=== PATIENT | female | born 1995 | race Caucasian/White ===

== ENCOUNTER 2018-09-24 06:32 | Inpatient (IN) | payer BC ==
[2018-09-09 11:48] VITALS: BMI 22.8
--- NOTE | 2018-09-18 10:35 | HP ---
Admitting History and Physical - Primary Care Physician PCP: Sebastien Chavarria - Admission Chief Complaint: High risk for breast cancer History of Present Illness: Patient is a 23 yo female who presents as a high risk for breast cancer patient secondary to personal h/o of BRCA 1 positive status (546GT) and strong family h/ o breast and ovarian cancer. Patient is presenting for bilateral prophylactic mastectomy with immediate reconstruction. Bilateral mammo, US and MRI done 2018 were wnl. History Source: Patient - Past Medical History Reproductive: Yes: Polycystic Ovary Syndrome, Other (genital herpes) ...LMP: 09/09/18 Psych: Yes: Anxiety, Depression - Advance Directives Advance Directives: Yes: Health Care Proxy - Smoking History Smoking history: Never smoked Have you smoked in the past 12 months: No - Alcohol/Substance Use Hx Alcohol Use: Yes (SOCIALLY) Home Medications - Allergies Allergies/Adverse Reactions: Allergies Allergy/AdvReac Type Severity Reaction Status Date / Time No Known Drug Allergies Allergy Verified 09/09/18 11:41 adhesive AdvReac Intermediate Itching,RED Verified 09/09/18 11:49 NESS - Home Medications Home Medications: Ambulatory Orders Escitalopram Oxalate [Lexapro -] 15 mg PO HS 09/09/18 Norethindrone-E.estradiol-Iron [Loestrin Fe 1.5-30 Tablet] 1 each PO HS Family Disease History - Family Disease History Family Disease History: CA: Grandparent (breast at 50 and 65, lung at 92, BRCA 1 +), Mother (breast cancer at 35 and 45, BRCA 1+) Other Family History: mat GF-prostate cancer at 78. mat great aunt-breast cancer at 90. mat great aunt -breast cancer 90s. mat great aunt-ovarian cancer. mat family member-melanoma Review of Systems - Review of Systems Constitutional: reports: No Symptoms Cardiovascular: reports: No Symptoms Respiratory: reports: No Symptoms Physical Examination Constitutional: Yes: Well Nourished, Calm Breast(s): Yes: Other (Slightly tubular breasts which are B-cup and symmetrical bilaterally. No suspicious masses noted bilaterally. No adenopathy noted bilaterally.) Problem List - Problems (1) At high risk for breast cancer Code(s): Z91.89 - OTH PERSONAL RISK FACTORS, NOT ELSEWHERE CLASSIFIED (2) BRCA gene mutation positive Code(s): Z15.01 - GENETIC SUSCEPTIBILITY TO MALIGNANT NEOPLASM OF BREAST; Z15.09 - GENETIC SUSCEPTIBILITY TO OTHER MALIGNANT NEOPLASM Assessment/Plan Plan: Bilateral mastectomy with implant reconstruction
[2018-09-24] MEDS ORDERED: BUPIVACAINE HCL/PF (5 MG/ML) 30 ML VIAL IJ ONE (07:04)
[2018-09-24] MEDS ORDERED: BUPIVACAINE LIPOSOME/PF (EXPAREL) 266 MG/20 ML VIAL ONE (07:04)
[2018-09-24] MEDS ORDERED: GENTAMICIN SO4 80 MG/2 ML VIAL ONE (07:06)
[2018-09-24] MEDS ORDERED: ceFAZolin SODIUM 1 GM VIAL ONE ×2 (07:06→08:35)
[2018-09-24] MEDS ORDERED: MIDAZOLAM HCL 2 MG/2 ML SINGLE DOSE VIAL ONE (07:11)
[2018-09-24] MEDS ORDERED: PROPOFOL 20 ML ONE (07:15)
[2018-09-24] MEDS ORDERED: SUCCINYLCHOLINE CHLORIDE 200 MG/10 ML VIAL ONE (07:15)
[2018-09-24] MEDS ORDERED: DESFLURANE GAS 240 ML BOTTLE IH ONE (07:25)
[2018-09-24] MEDS ORDERED: ONDANSETRON 4 MG/2 ML VIAL ONE ×3 (08:42→11:57)
[2018-09-24] MEDS ORDERED: DEXAMETHASONE SOD PHOSPHATE 4 MG/1 ML VIAL ONE (08:42)
[2018-09-24] MEDS ORDERED: ePHEDrine SULFATE 50 MG/1 ML AMPULE ONE (08:58)
[2018-09-24] MEDS ORDERED: ROCURONIUM BROMIDE 50 MG/5 ML VIAL ONE (09:33)
[2018-09-24] MEDS ORDERED: ZOLPIDEM TARTRATE 5 MG TABLET PO PRN (10:33)
[2018-09-24] MEDS ORDERED: ACETAMINOPHEN 325 MG TABLET (FP) PO PRN (10:33)
[2018-09-24] MEDS ORDERED: ONDANSETRON 4 MG/2 ML VIAL IVPUSH ONE (11:57)
[2018-09-24] MEDS ORDERED: traMADol HCL 50 MG TABLET ONE (12:56)
[2018-09-24] MEDS ORDERED: diazePAM 2 MG TABLET ONE (12:56)
[2018-09-24] MEDS ORDERED: diazePAM 2 MG TABLET PO ONE (13:00)
[2018-09-24] MEDS ORDERED: traMADol HCL 50 MG TABLET PO ONE (13:02)
--- NOTE | 2018-09-24 13:04 | SURG ---
Surgery Gas Plant Dispatcher Note Gas Plant Dispatcher: Pat Vo PA-C (Suzy) Date of Service: 09/24/18 Diagnosis: Bilateral acquired chest wall deformity, s/p mastectomy Procedure: Right immediate breast reconstruction utiliing immediate insertion of silicone breast implant and Alloderm reconstruction Left immediate breast reconstruction utilizing immediate insertion of silicone breast implant and Alloderm reconstruction I was present for the entirety of the operative procedure. For further detail, please refer to operative report. Visit type - Case Type Case Type: Scheduled - Emergency Emergency Visit: No - New patient This patient is new to me today: Yes Date on this admission: 09/28/18 - Critical Care Critical Care patient: No
--- NOTE | 2018-09-24 13:04 | OP ---
Operative Note - Note: Operative Date: 09/24/18 Pre-Operative Diagnosis: Bilateral acquired chest wall deformity, s/p mastectomy Operation: Right immediate breast reconstruction utiliing immediate insertion of silicone breast implant and Alloderm reconstruction. Left immediate breast reconstruction utilizing immediate insertion of silicone breast implant and Alloderm reconstruction Implants: as dictated Post-Operative Diagnosis: Same as Pre-op Surgeon: Chava Santos Packing Room Worker: Pat Vo Anesthesiologist/WIRE COMMUNICATIONS ENGINEER: Ines Moreno Anesthesia: General Specimens Removed: bilateral breast tissue Fluid Volume Replaced (mls): 2 (L LR) Operative Report Dictated: Yes
[2018-09-24] MEDS: CEFAZOLIN 1 GM/D5W 1 GRAM/50 ML BAG IVPB SCH ×2 (14:27→21:25)
[2018-09-24] MEDS: ONDANSETRON 4 MG/2 ML VIAL IVPUSH PRN (14:27)
[2018-09-24] MEDS: traMADol HCL 50 MG TABLET PO SCH ×2 (14:28→21:37)
[2018-09-24] MEDS: DEXTROSE 5%-0.45% SALINE 1,000 ML IV SCH (14:28)
[2018-09-24] MEDS: LACTATED RINGERS SOLUTION 1,000 ML IV SCH (14:28)
[2018-09-24] MEDS: diazePAM 2 MG TABLET PO SCH ×2 (14:29→21:28)
[2018-09-24] MEDS: oxyCODONE HCL 5 MG TABLET PO PRN ×2 (14:30→19:26)
[2018-09-24] MEDS: ACETAMINOPHEN 325 MG TABLET (FP) PO SCH ×2 (14:31→21:25)
--- NOTE | 2018-09-24 15:22 | OP ---
DATE OF OPERATION: 09/24/2018 PREOPERATIVE DIAGNOSIS: Bilateral acquired chest wall deformity status post bilateral mastectomy (611.89). POSTOPERATIVE DIAGNOSIS: Bilateral acquired chest wall deformity status post bilateral mastectomy (611.89). PROCEDURE: 1. Right immediate breast reconstruction utilizing immediate insertion of silicone breast implant and AlloDerm reconstruction. 2. Left immediate breast reconstruction utilizing immediate insertion of silicone breast implant and AlloDerm reconstruction. 3. Intravenous injection of indocyanine green dye and intraoperative diagnostic evaluation of non-coronary intraoperative fluorescein vascular angiography x 2. SURGEON: Dr. Shana Santos FORWARD AIR CONTROLLER/AIR OFFICER: Shani ASKEW ANESTHESIA: GENERAL ANESTHESIOLOGIST: OPERATIVE PROCEDURE IN DETAIL: The patient was taken to the operating room. After induction of general anesthesia in the supine position, both arms were extended and padded. Venodyne boots were placed. The entire chest wall was painted with ChloraPrep solution over its entire extent, and sterile drapes were placed in the usual fashion. The markings, which had been made in the standing position preoperatively, were reoutlined with the patient's knowledge. Time-out procedure was performed. Attention was turned by to the mastectomies. Bilateral inframammary incisions were made and Dr. performed mastectomies. This will be dictated under separate cover. Upon completion of the mastectomies, the wounds were copiously irrigated and attention was turned to the right breast. A subpectoral dissection was begun on the right breast, superiorly from the second rib, medially to the sternal fibers, and down to the inframammary fold, elevating the pectoralis major muscle from its insertion. At this point, an contour medium perforated sheet of AlloDerm was brought into the field and sutured superiorly along the pectoralis major muscle after rehydration. This was carried along the lateral mammary fold and down the side of the breast reconstruction. At this point, a Sientra smooth, round, high profile, style 107, 505 mL implants was chosen. The left breast tissue removed was 461 gm, and the right breast approximately 321 gm. This implant was placed and then sutured with 3-0 Vicryl suture continued along the inframammary fold, completely covering the implant itself. The exact same procedure was carried out symmetrically on the opposite breast, also placing a Sientra smooth, round, high profile, style 107, 505 mL implant in the same subpectoral pocket. Good symmetry was seen in the sitting position. After the implants were in place, the patient was injected with 10 mL of Isocyanide green dye and the Spy imaging system was brought into the field. The skin flowed to the right and left breasts and the nipple areolar complex, and the entire skin flaps were evaluated and seen to be viable with good blood flow. Two Johnathon drains were brought out through separate stab wounds laterally. The Smart Infuser pump catheter was inserted medially and into the subpectoral position. Both wounds were closed symmetrically using 3-0 PDS suture on the deep tissue, 3-0 in a deep dermal fashion, and 4-0 in a subcuticular fashion. Both wounds were dressed sterilely with Mastisol and Steri-Strips with a surgical bra and a compression strap. The patient tolerated the procedure well. She was awakened, extubated and transferred to the recovery room in satisfactory condition. The magistrate assistant was present during the entire portion of the operation and closure. RADHA SANTOS M.D. [id number]
--- NOTE | 2018-09-24 15:22 | OP ---
DATE OF OPERATION: 09/24/2018 PREOPERATIVE DIAGNOSIS: Genetic susceptibility for breast cancer, BRCA1 positive. POSTOPERATIVE DIAGNOSIS: Genetic susceptibility for breast cancer, BRCA1 positive. PROCEDURE PERFORMED: Bilateral total nipple-sparing mastectomies through an inframammary approach, with bilateral direct implant reconstruction with AlloDerm. ANESTHESIA: General endotracheal anesthesia. PRIMARY SURGEON: Radha Chavarria M.D. SUPERVISOR FORMING AND TEMPERING: MACRINA Dunlap Primary surgeon for the bilateral direct implant reconstruction with AlloDerm is Dr. Radha Santos. COMPLICATIONS: There were no complications. INDICATIONS: Briefly, the patient is a 23-year-old nulliparous, premenopausal white female with a strong family history with her mother and maternal grandmother both who had breast cancer and tested BRCA1 positive. The patient herself tested BRCA1 positive and was seen in consultation regarding risk reduction strategies. She chose to undergo nipple-sparing mastectomies with direct implant reconstruction. She understood all the risks and benefits of the surgery, including risk of skin flap necrosis, hematoma, infection, nipple loss. She underwent mammography and MRI prior to the procedure, which were negative. DESCRIPTION OF PROCEDURE: The patient was brought in for the procedure on September 24, 2018. In the holding area, site verification was made and informed consent was obtained. She was marked preoperatively by the plastic surgeon. She was then brought into the operating room and laid on the OR table in the supine position. Venodyne were placed in the lower extremities prior to induction. She received 1 g of Ancef prior to incision. She underwent general endotracheal anesthesia. Both breasts were sterilely prepped and draped in the usual fashion. A time-out was performed. Inframammary incisions were marked out bilaterally in the inframammary folds of both breasts, about 9 cm in length. The left mastectomy was first performed. Incision was made and dissection was undertaken by everting the skin edges and retracting the breast inferiorly using Lior clamps. The skin flap was raised using the PEAK radiofrequency device superiorly to the level of the clavicle, medially to the level of the sternum, laterally to the level of the latissimus and inferiorly to the level of inframammary fold. The breast was taken down off the pectoralis major muscle using electrocautery, from inferomedial to superolateral, and completely removed intact. It was oriented with a long-lateral and short-superior suture and weighed to allow for an appropriate cosmetic result. The skin flap was trimmed to remove all visible breast tissue. A small amount of tissue underneath the left retroareolar region was shaved and sent for frozen section. It came back negative, so the left nipple was spared. At this point the right mastectomy was performed, again using a symmetrical inframammary incision 9 cm in length. The skin edges were everted and the breast tissue retracted inferiorly using [place] clamps. The skin flap was raised using the PEAK radiofrequency device. The skin flap was raised superiorly to the level of the clavicle, medially to the level of the sternum, laterally to the level of the latissimus and inferiorly to the level of inframammary fold. The breast was taken down off the pectoralis major muscle using electrocautery, from inferomedial to superolateral, and completely removed intact. It was oriented with a long-lateral and short-superior suture and weighed to allow for an appropriate cosmetic result. It should be noted that the left breast was at least 100 g larger than the right, and this had been noted preoperatively. Hemostasis was achieved and the skin flaps were trimmed to remove all the visible breast tissue. A shave biopsy underneath the right nipple-areolar complex was sent and sent for frozen section, which came back negative. So the right nipple-areolar complex was spared. Hemostasis was achieved, and the wounds were copiously irrigated with warm sterile saline. At this point, Dr. Santos became the primary surgeon and performed the bilateral direct implant reconstruction with AlloDerm. The AlloDerm was sutured into the inferolateral aspects of both pectoralis major muscles to allow for the direct implant reconstruction, which was placed in the subpectoral location. Two Johnathon drains were placed around each implant and brought out through separate stab incisions in the lateral skin fold. These will be sutured in place using 3-0 nylon suture. All wounds will be closed by Plastic Surgery. We did use a skin perfusion device at the end of the mastectomy, which showed good skin perfusion. There was a small area of some possible thermal injury, maybe 0.5 cm in size, on the inferomedial aspect of the left skin flap, which will be followed closely. All sponge and needle counts were correct at the end of the case. Estimated blood loss was about 100 mL. She was hemodynamically stable at this point in the case. After the reconstruction, the patient will be recovered in the postanesthesia care unit and will be admitted postoperatively for pain and wound management. She did have a prepectoral nerve block placed in the holding area prior to the surgery to allow for postoperative pain control. RADHA CHAVARRIA M.D. [id number]
[2018-09-24] MEDS ORDERED: ESCITALOPRAM OXALATE 10 MG TABLET (FP) PO SCH (22:00)
[2018-09-24] MEDS ORDERED: NORETHINDRONE E ESTRADIOL IRON PO SCH (22:00)
[2018-09-25] MEDS: CEFAZOLIN 1 GM/D5W 1 GRAM/50 ML BAG IVPB SCH ×3 (03:08→15:16)
[2018-09-25] MEDS: ACETAMINOPHEN 325 MG TABLET (FP) PO SCH ×3 (03:14→15:16)
[2018-09-25] MEDS: diazePAM 2 MG TABLET PO SCH ×2 (06:02→14:06)
[2018-09-25] MEDS: traMADol HCL 50 MG TABLET PO SCH ×2 (06:05→14:06)
[2018-09-25 07:43] LABS: HEMATOCRIT 31.4 % (32.4-45.2); HEMOGLOBIN 10.3 GM/dl (10.7-15.3); MCH 29.6 pg (25.7-33.7); MCHC 32.8 g/dl (32.0-36.0); MEAN CELL VOLUME 90.3 fl (80-96); MEAN PLT VOLUME 7.9 fl (7.5-11.1); PLATELET COUNT 279 K/MM3 (134-434); RBC 3.48 M/mm3 (3.60-5.2); RDW 12.1 % (11.6-15.6); WHITE BLOOD COUNT 9.7 K/mm3 (4.0-10.8)
--- NOTE | 2018-09-25 08:39 | PN ---
Progress Note, Physician Chief Complaint: BRCA positive S/P bilateral nipple sparing total mastectomies and alloderm implant reconstruction History of Present Illness: patient is up in bed eating no nausea or vomiting ,pain level a 4 managed with oxycodeone prn - Current Medication List Current Medications: Active Medications Acetaminophen (Tylenol -) 650 mg PO Q6H [facility] Last Admin: 09/25/18 08:03 Dose: 650 mg Diazepam (Valium -) 2 mg PO Q8H [facility] Last Admin: 09/25/18 06:02 Dose: 2 mg Escitalopram Oxalate (Lexapro -) 15 mg PO HS [facility] Last Admin: 09/24/18 21:28 Dose: 15 mg Cefazolin Sodium (Ancef 1 Gm Premixed Ivpb -) 1 gram in 50 mls @ 100 mls/hr IVPB Q6H-IV JACKIE Stop: 10/01/18 14:59 Last Admin: 09/25/18 08:03 Dose: 100 mls/hr Dextrose/Sodium Chloride (D5-1/2ns -) 1,000 mls @ 100 mls/hr IV ASDIR [facility] Last Admin: 09/24/18 14:28 Dose: 100 mls/hr Lactated Ringer's (Lactated Ringers Solution) 1,000 mls @ 125 mls/hr IV ASDIR JACKIE Last Admin: 09/24/18 14:28 Dose: Not Given Non-Formulary Medication (Norethindrone-E.Estradiol-Iron [Loestrin Fe 1.5-30 Tablet]) 1 each PO HS [facility] Ondansetron HCl (Zofran Injection) 4 mg IVPUSH Q6H PRN PRN Reason: NAUSEA AND/OR VOMITING Last Admin: 09/24/18 14:27 Dose: 4 mg Oxycodone HCl (Roxicodone -) 5 mg PO Q4H PRN PRN Reason: PAIN LEVEL 1-5 Last Admin: 09/24/18 19:26 Dose: 5 mg Oxycodone HCl (Roxicodone -) 10 mg PO Q4H PRN PRN Reason: PAIN LEVEL 6-10 Tramadol HCl (Ultram -) 50 mg PO Q8H [facility] Last Admin: 09/25/18 06:05 Dose: 50 mg Zolpidem Tartrate (Ambien -) 5 mg PO HS PRN PRN Reason: Insomnia - Objective Vital Signs: Vital Signs Temperature 98.4 F 09/25/18 06:00 Pulse Rate 83 09/25/18 06:00 Respiratory Rate 18 09/25/18 06:00 Blood Pressure 108/54 L 09/25/18 06:00 O2 Sat by Pulse Oximetry (%) 96 09/25/18 06:00 Constitutional: Yes: No Distress Breast(s): Yes: Other (Bilatyeral chest wall with moderate echymosis, flaps viable incision intact no signs of infection eric drains functioning well, dressing changes) Labs: CBC, BMP 09/25/18 07:31 Problem List - Problems (1) BRCA gene mutation positive Code(s): Z15.01 - GENETIC SUSCEPTIBILITY TO MALIGNANT NEOPLASM OF BREAST; Z15.09 - GENETIC SUSCEPTIBILITY TO OTHER MALIGNANT NEOPLASM Assessment/Plan continue IV antibiotics oxycodone prn pain spirometry SCD while on bed OOB with asst discharge tomorrow
[2018-09-25] MEDS: oxyCODONE HCL 5 MG TABLET PO PRN ×2 (08:41→15:17)
[2018-09-25] MEDS: DEXTROSE 5%-0.45% SALINE 1,000 ML IV SCH (10:05)
--- NOTE | 2018-09-25 12:35 | PN ---
Progress Note (short form) - Note Progress Note: Doing well OOB walking Good result with NAC viability Probable dc tomorrow
[2018-09-25] MEDS: LACTATED RINGERS SOLUTION 1,000 ML IV SCH (14:05)
[2018-09-26 00:20] VITALS: TEMP 98.6
[2018-09-26] MEDS: oxyCODONE HCL 5 MG TABLET PO PRN ×3 (01:53→11:37)
[2018-09-26] MEDS: ACETAMINOPHEN 325 MG TABLET (FP) PO SCH (02:20)
[2018-09-26] MEDS: CEFAZOLIN 1 GM/D5W 1 GRAM/50 ML BAG IVPB SCH ×2 (02:20→09:00)
[2018-09-26] MEDS: ONDANSETRON 4 MG/2 ML VIAL IVPUSH PRN (02:46)
[2018-09-26] MEDS: diazePAM 2 MG TABLET PO SCH (05:51)
[2018-09-26] MEDS: traMADol HCL 50 MG TABLET PO SCH (05:51)
[2018-09-26 06:57] VITALS: BP 110/59; PULSE 98
--- NOTE | 2018-09-29 09:52 | PATH ---
Surgical Pathology Report Patient Name: COURTNEY RM Med. Rec. #: [id number] /Age/Gender: 1995 (Age: 23) / F Account: [id number] Location: [facility] MED-SURG Taken: 09/24/2018 Received: 09/24/2018 Reported: 09/29/2018 Physicians: Sebastien Chavarria M.D. Specimen(s) Received A: RIGHT RETROAREOLAR BIOPSY (FS) B: LEFT RETROAREOLAR BIOPSY (FS) C: RIGHT BREAST D: LEFT BREAST Clinical History Bilateral prophylactic mastectomy, BRCA1+ Intraoperative Consult Diagnosis A. Right retroareolar biopsy, frozen section: Negative for malignancy. B. Left breast or areolar biopsy, frozen section: Negative for malignancy. Iwona Hanna M.D., 09/24/2018 Final Diagnosis A. RETROAREOLA, RIGHT, BIOPSY (FS): BENIGN BREAST TISSUE; NEGATIVE FOR MALIGNANCY. B. RETROAREOLA, LEFT, BIOPSY (FS): BENIGN BREAST TISSUE; NEGATIVE FOR MALIGNANCY. C. BREAST, RIGHT, NIPPLE-SPARING MASTECTOMY: BENIGN BREAST TISSUE. D. BREAST, LEFT, NIPPLE-SPARING MASTECTOMY: BENIGN BREAST TISSUE. Electronically Signed Akanksha Hanna M.D. Gross Description A. Received fresh labeled "right retroareolar biopsy," is a 0.8 x 0.4 x 0.2 cm portion of red and pink soft tissue. Frozen section is performed on the tissue. The frozen section residue is entirely submitted in one cassette. B. Received fresh labeled "left retroareolar biopsy," is a 1.7 x 1.3 x 0.2 cm portion of red and pink soft tissue. Frozen section is performed on the tissue. The frozen section residue is entirely submitted in one cassette. C. Received in formalin, labeled "right breast," is a 312 gram, 14.5 x 14.0 x 4.0 cm. right mastectomy specimen with a short suture marking the superior aspect and a long suture marking the lateral aspect of the specimen, per the surgeon. There is no skin or nipple present. The deep margin is inked black and the anterior soft tissue margin is inked blue. The specimen is serially sectioned from lateral to medial. Sectioning reveals abundant dense, white, focally firm fibrous tissue. Professor Of Journalism sections are submitted in 14 cassettes as follows: 1-3-upper outer quadrant; 4-6-lower outer quadrant; 7-9-upper inner quadrant; 10-12-lower inner quadrant; 13-anterior soft tissue margin; 14-deep margin. Time to formalin fixation: 35 minutes Total formalin fixation time: Approximately 32 hours. D. Received in formalin, labeled "left breast," is a 489 gram, 17.0 x 15.0 x 4.2 cm. left mastectomy specimen with a short suture marking the superior aspect and a long suture marking the lateral aspect of the specimen, per the surgeon. There is no skin or nipple present. The deep margin is inked black and the anterior soft tissue margin is inked blue. The specimen is serially sectioned from medial to lateral. Sectioning reveals abundant dense white fibrous tissue. Professor Of Journalism sections are submitted in 14 cassettes as follows: 1-3-upper outer quadrant; 4-6-lower outer quadrant; 7-9-upper inner quadrant; 10-12-lower inner quadrant; 13-anterior soft tissue margin; 14-deep margin. Time to formalin fixation: 15 minutes Total formalin fixation time: Approximately 32 hours. 09/25/2018 [facility]09/25/2018
== END 2018-09-26 12:30 | disposition home or self-care (01) | DRG 585 ==
LOC: FM/S 06:32
PROVIDERS: ADMIT Surgery Surgical Oncology; ATTEND Surgery Surgical Oncology
PROC: 0HUV0JZ Supplement Bilateral Breast with Synthetic Substitute, Open Approach (ICD-10-PCS; 2018-09-24)
PROC: 0HTV0ZZ Resection of Bilateral Breast, Open Approach (ICD-10-PCS; principal; 2018-09-24 08:42)
PROC: 0HRV0JZ Replacement of Bilateral Breast with Synthetic Substitute, Open Approach (ICD-10-PCS; 2018-09-24 08:42)
DX: Z40.01 Encounter for prophylactic removal of breast (principal); Z80.3 Family history of malignant neoplasm of breast; M95.4 Acquired deformity of chest and rib
CPT/HCPCS: 36415; 81025; 85027; 88307-TC; 88331-TC; 94760